=== PATIENT | female | born 1945 | race Caucasian/White ===

== ENCOUNTER → 2016-11-11 | Outpatient (CLI) | payer MEDICARE, OTHER | END | disposition home or self-care (01) | LOC: GMAB 10:16 | PROVIDERS: ATTEND Family Medicine | DX: E78.2 Mixed hyperlipidemia (principal); I10 Essential (primary) hypertension ==

== ENCOUNTER → 2017-12-01 | Outpatient (CLI) | payer MEDICARE ==
--- NOTE | 2017-12-01 14:09 | RAD ---
EXAM DESCRIPTION: Knee,Left Complete CLINICAL HISTORY: PAIN IN LEFT KNEE COMPARISON: 4 standing views of the left knee shows no evidence of acute fracture, focal bone destruction, or joint dislocation. Mild narrowing of the medial and lateral tibiofemoral compartments is seen without significant joint line osteophytes. Mild soft tissue swelling anterior to the superior patella is noted. Increased density in the suprapatellar bursa region is seen. IMPRESSION: Mild osteoarthritic changes of the left tibiofemoral compartment. Mild soft tissue swelling anterior to the patella could represent sequela of trauma or contusion. Small left joint effusion is seen. Electronically signed by: Pb Ventura MD 12/01/2017 2:07 PM CDT
--- NOTE | 2017-12-01 14:10 | RAD ---
EXAM DESCRIPTION: Pelvis CLINICAL HISTORY: 71 years Female, PAIN IN LEFT HIP COMPARISON: None. FINDINGS: Single AP view of the pelvis shows nondisplaced pelvic fracture. The hip and sacroiliac joint spaces are fairly well-maintained. Degenerative calcifications arise from the greater trochanters bilaterally. There are mild degenerative changes at a few levels in the lower lumbar spine. Small pelvic calcifications likely represent phleboliths. IMPRESSION: Mild degenerative changes in both hips, but no additional abnormality to explain left hip pain. Electronically signed by: Chace Blake MD 12/01/2017 2:09 PM CDT
== END ==
LOC: RAD 08:06
PROVIDERS: ATTEND Orthopaedic Surgery
DX: M17.12 Unilateral primary osteoarthritis, left knee (principal); M25.462 Effusion, left knee; M25.562 Pain in left knee; M25.552 Pain in left hip

== ENCOUNTER → 2018-02-13 | Outpatient (CLI) | payer MEDICARE, OTHER | LOC: GMAE 11:19 | PROVIDERS: ATTEND Family Medicine | DX: I10 Essential (primary) hypertension (principal) ==

== ENCOUNTER 2018-05-25 09:14 | Emergency (ER) | payer MEDICARE, OTHER ==
[2018-05-25] MEDS ORDERED: METOPROLOL TARTRATE INJ 5 MG/5 ML VIAL IV ONE (09:43)
--- NOTE | 2018-05-25 09:47 | ED.PDOC ---
History of Present Illness - General Chief Complaint: Cardiovascular Problem Stated Complaint: HTN, left arm pain Time Seen by Provider: 05/25/18 09:37 Source: patient Exam Limitations: no limitations - History of Present Illness Initial Comments: Pt found her BP to be over 200 systolic this am. She has had mild SOB and minimal L arm pain. Denies CAD Hx. Has had high BP for several days, and has been Rx'ed another BP med which has not been started yet Timing/Duration: 1 week Location: other Activities at Onset: none Prior Chest Pain/Cardiac Workup: other - Ablation performed for A.fib Improving Factors: nothing Worsening Factors: nothing Nitro Today/Relief: no nitro taken today Aspirin Treatment Today: no aspirin today Associated Symptoms: shortness of breath Allergies/Adverse Reactions: Allergies NO KNOWN ALLERGY Allergy (Verified 05/15/12 12:13) Home Medications: Ambulatory Orders Calcium Carbonate-Vitamin D [Calcium 600+D 600-200 mg-Unit] 1 tab PO BID 01/26/14 Estropipate [Ogen] 1.5 mg PO DAILY 01/26/14 Gabapentin [Neurontin] 300 mg PO BID 01/26/14 Lisinopril [Zestril] 20 mg PO BEDTIME 01/26/14 Medroxyprogesterone Acetate [Medroxyprogesterone Aceta] 2.5 mg PO DAILY 01/26/14 Meloxicam 15 mg PO DAILY 01/26/14 [place]-3 Fatty Acids [Fish Oil] 1 cap PO DAILY 01/26/14 Chlorthalidone 12.5 mg PO DAILY 05/25/18 Vitamin E [Natural Vitamin E] 1,000 unit PO DAILY 05/25/18 Review of Systems - Review of Systems Constitutional: States: no symptoms reported EENTM: States: no symptoms reported Respiratory: States: short of breath. Denies: cough, orthopnea Cardiology: Denies: chest pain, edema Gastrointestinal/Abdominal: Denies: abdominal pain, nausea Genitourinary: States: no symptoms reported Musculoskeletal: States: no symptoms reported Skin: States: no symptoms reported Neurological: States: no symptoms reported Endocrine: States: no symptoms reported Hematologic/Lymphatic: States: no symptoms reported Past Medical History (General) - Patient Medical History Hx Cardiac Disorders: Yes - Small SD, and ablation for Tachydysrhythmia Hx Congestive Heart Failure: No Hx Hypertension: Yes Family Medical History - Family History Mother Family History: No Known Physical Exam - Physical Exam General Appearance: Alert, Anxious Eyes, Ears, Nose, Throat Exam: PERRL/EOMI, pharynx normal Neck: non-tender, full range of motion, supple Respiratory: chest non-tender, lungs clear, normal breath sounds Cardiovascular/Chest: normal peripheral pulses, regular rate, rhythm, no edema Gastrointestinal/Abdominal: normal bowel sounds, non tender, soft Extremity: normal range of motion, non-tender, normal inspection, no pedal edema Neurologic: alert, normal mood/affect, oriented x 3 Skin Exam: normal color, warm/dry Progress - EKG/XRAY/CT EKG: Sinus, nonspecific ST T wave Chg Comments: Rate 69, [place] 132, QRS 80 Departure - Departure Clinical Impression: Hypertension Qualifiers: Hypertension type: essential hypertension Qualified Code(s): I10 - Essential (primary) hypertension Disposition: Discharge to Home or Self Care Condition: Fair Departure Forms: ED Discharge - Pt. Copy, Patient Portal Self Enrollment Instructions: DI for Chest Pain Referrals: BOBBY LINDER MD [Primary Care Provider] - 1-2 Weeks Home Medications: Ambulatory Orders Calcium Carbonate-Vitamin D [Calcium 600+D 600-200 mg-Unit] 1 tab PO BID 01/26/14 Estropipate [Ogen] 1.5 mg PO DAILY 01/26/14 Gabapentin [Neurontin] 300 mg PO BID 01/26/14 Lisinopril [Zestril] 20 mg PO BEDTIME 01/26/14 Medroxyprogesterone Acetate [Medroxyprogesterone Aceta] 2.5 mg PO DAILY 01/26/14 Meloxicam 15 mg PO DAILY 01/26/14 [place]-3 Fatty Acids [Fish Oil] 1 cap PO DAILY 01/26/14 Chlorthalidone 12.5 mg PO DAILY 05/25/18 Vitamin E [Natural Vitamin E] 1,000 unit PO DAILY 05/25/18
[2018-05-25 10:54] VITALS: BP 179/83; TEMP 97.6; O2SAT 95
== END 2018-05-25 10:56 | disposition home or self-care (01) ==
LOC: ER 09:14
DX: I10 Essential (primary) hypertension (principal); R06.02 Shortness of breath; M79.602 Pain in left arm; I25.2 Old myocardial infarction; Z79.899 Other long term (current) drug therapy

== ENCOUNTER → 2018-07-04 | Outpatient (CLI) | payer MEDICARE, OTHER ==
--- NOTE | 2018-07-04 08:58 | MRI ---
EXAM DESCRIPTION: MRI right hip CLINICAL HISTORY: Right hip pain. Inability to bear weight COMPARISON: None. TECHNIQUE: Multiplanar, multisequence MR images of the right hip FINDINGS: Degenerative tear anterior superior labrum. Intralabral signal with mild fraying of the articular surface. Tiny paralabral cyst along the anterior column axial image 14. No focal osteochondral lesion of the femoral head or acetabulum. Diffuse chondral thinning joint space narrowing. Physiologic joint fluid without synovitis or intra-articular body Chronic tendinosis and high-grade insertional tears of the gluteus minimus and anterior gluteus medius bilaterally. Markedly attenuated chronically torn tendons with large enthesophytes at the greater trochanter. Fluid partially undermines the chronically torn tendons with minimal fluid in the trochanteric bursa. Muscle volume loss and fatty infiltration] right greater than left The remaining tendon attachments to the femur are normal. No abnormality of the tendon attachments to the pelvis No pelvic soft tissue mass lesion, adenopathy or free fluid to suggest neoplasm. No mass lesion or focal inflammatory process seen in the small or large intestine included in the [id number] IMPRESSION: Chronic/remotely torn gluteus minimus and gluteus medius tendon attachments to the greater trochanter bilaterally. Large enthesophytes. Trochanteric bursal fluid bilaterally Degenerative labral tear anterior superior right hip. No acute bony abnormality or focal osteochondral lesion of the right hip Electronically signed by: Brannon Elkins MD 07/04/2018 8:56 AM CDT
== END ==
LOC: MRI 08:00
PROVIDERS: ATTEND Family Medicine
DX: S76.311A Strain of muscle, fascia and tendon of the posterior muscle group at thigh level, right thigh, initial encounter (principal); S73.192A Other sprain of left hip, initial encounter; M25.751 Osteophyte, right hip

== ENCOUNTER → 2018-08-09 | Outpatient (CLI) | payer MEDICARE, OTHER | LOC: LAB.O 09:34 | PROVIDERS: ATTEND Orthopaedic Surgery | DX: Z01.818 Encounter for other preprocedural examination (principal) ==

== ENCOUNTER 2018-09-06 05:44 | Inpatient (IN) | payer MEDICARE, OTHER ==
--- NOTE | 2018-08-31 10:16 | HP ---
CHIEF COMPLAINT: Right hip pain. HISTORY OF PRESENT ILLNESS: Ms. Iniguez is a 72-year-old female with a history of pain in the lateral aspect of the hip. It has been there now for a couple of months and has gotten progressively worse. Because of the pain and her failure of conservative measures, she has requested operative intervention. She has had an MRI which does show tearing of the abductor musculature. After discussing the risks, benefits and alternatives to that, she has given informed consent for abductor musculature repair. PAST SURGICAL HISTORY: 1. . 2. Cholecystectomy. MEDICATIONS: 1. Prednisone. 2. Lisinopril. 3. Clonidine. 4. Amlodipine. 5. Gabapentin. 6. Mobic. 7. Estropipate. 8. [place]. 9. Aspirin. 10. Medroxyprogesterone. ALLERGIES: NO KNOWN DRUG ALLERGIES. CODE STATUS: DNR. IMMUNIZATIONS: Up to date. SOCIAL HISTORY: The patient does not drink, smoke or use any illicit drugs. FAMILY HISTORY: None pertinent to today's complaint. REVIEW OF SYSTEMS: Negative except as indicated in the History of Present Illness. PHYSICAL EXAMINATION: VITAL SIGNS: Blood pressure 158/81. Pulse 72. Height 5'3". Weight 194 pounds. MENTAL STATUS: The patient is awake, alert, and is able to give a good history and participate in the physical. The patient is oriented to person, place and time. SKIN: Normal tone and turgor. HEENT: Normocephalic, atraumatic. Pupils equal, round and reactive. Mucosal membranes are moist. NECK: Normal range of motion. No thyromegaly, no lymphadenopathy. CHEST: Normal respiratory excursion. CARDIAC: Regular rate and rhythm. No murmurs, rubs or gallops. MUSCULOSKELETAL: The bilateral upper extremities show full active range of motion. She has intact sensation and they are warm and well perfused. She has no deformity and no significant crepitus with range of motion. Strength is 5/5 and equivalent to the contralateral side. The left lower extremity shows full range of motion in the hip, knee, ankle and digits. Sensation is intact and the extremity is warm and well perfused. There is no deformity. The right lower extremity shows full range of motion in the hip. She has full range of motion in the knee. She has severe pain to palpation of the lateral aspect of the hip with some weakness in abduction. Strength is 5/5. She has a slight antalgic gait. ASSESSMENT: 1. Abductor musculature rupture. PLAN: The plan at this point is for abductor musculature repair. She has been fitted for an abduction brace and will utilize that after surgery. We have discussed the risks, benefits, and alternatives to that and the patient has given informed consent. #[id number] [facility]
[2018-09-06] MEDS ORDERED: VANCOMYCIN HCL INJ 1,000 MG VIAL IVPB ONE ×2 (05:55→17:44)
[2018-09-06] MEDS ORDERED: TRANEXAMIC ACID 1,000 MG/10 ML VIAL ONE (05:55)
[2018-09-06] MEDS ORDERED: SODIUM CHL 0.9% 100ML MINI-BAG 100 ML IVPB ONE (05:55)
[2018-09-06] MEDS ORDERED: ceFAZolin SODIUM 1 GM VIAL ONE ×3 (05:55→17:06)
[2018-09-06] MEDS ORDERED: SODIUM CHLORIDE 0.9% 250ML 250 ML ONE ×2 (05:55→17:43)
[2018-09-06] MEDS ORDERED: LACTATED RINGERS 1,000 ML ONE (05:55)
[2018-09-06] MEDS ORDERED: SODIUM CHLORIDE 0.9% 100ML 0 ML IVPB ONE (05:56)
[2018-09-06] MEDS ORDERED: MORPHINE SULFATE *EPIDURAL* 0.5 MG/ML VIAL ONE (06:40)
[2018-09-06] MEDS ORDERED: ROCURONIUM BROMIDE 10 MG/ML VIAL ONE (06:40)
[2018-09-06] MEDS ORDERED: MIDAZOLAM INJ 2 MG/2 ML VIAL ONE (06:40)
[2018-09-06] MEDS ORDERED: fentaNYL CITRATE INJ 50 MCG/ML AMP ONE (06:40)
[2018-09-06] MEDS: VANCOMYCIN HCL INJ 1,000 MG VIAL IVPB ONE ×3 (07:56→09:02)
[2018-09-06] MEDS: ceFAZolin SODIUM 1 GM VIAL ONE ×3 (07:56→09:02)
[2018-09-06] MEDS: BUPIVACAINE LIPOSOME 13.3 MG/ML VIAL INJ ONE ×2 (08:06→09:02)
[2018-09-06] MEDS: BUPIVACAINE 0.5% 30 ML VIAL INJ ONE ×2 (08:06→09:02)
[2018-09-06] MEDS ORDERED: ELECTROLYTE-A 1,000 ML IVS ONE (08:29)
[2018-09-06] MEDS ORDERED: ACETAMINOPHEN 500 MG TAB PO PRN (09:22)
[2018-09-06] MEDS ORDERED: ONDANSETRON INJ 4 MG/2 ML VIAL IV PRN (09:22)
[2018-09-06] MEDS ORDERED: TEMAZEPAM 15 MG CAP PO PRN (09:22)
[2018-09-06] MEDS ORDERED: MORPHINE SULFATE INJ 10 MG/ML VIAL IM PRN (09:22)
[2018-09-06] MEDS ORDERED: PROMETHAZINE HCL INJ 12.5 MG in SODIUM CHLORIDE 0.9% 50ML 50 ML IVPB PRN (09:22)
[2018-09-06] MEDS ORDERED: DEX 5% W/NACL 0.45% 1000ML 1,000 ML IVS PRN (09:22)
[2018-09-06] MEDS ORDERED: ALUMINUM & MAGNESIUM HYDROXIDE 30 ML UD PO PRN (09:22)
[2018-09-06] MEDS ORDERED: BENZOCAINE-MENTH LOZ (CEPACOL) 1 EA LOZ MT PRN (09:22)
[2018-09-06] MEDS ORDERED: NALOXONE HCL INJ 0.4 MG/ML VIAL IV PRN (09:22)
[2018-09-06] MEDS ORDERED: ZOLPIDEM TARTRATE 5 MG TAB PO PRN (09:22)
[2018-09-06] MEDS ORDERED: ACETAMINOPHEN 325 MG TAB PO PRN (09:22)
[2018-09-06] MEDS ORDERED: MORPHINE SULFATE INJ 10 MG/ML VIAL IV PRN (09:22)
[2018-09-06] MEDS ORDERED: CYCLOBENZAPRINE HCL 10 MG TAB PO PRN (09:22)
[2018-09-06] MEDS ORDERED: SODIUM CHLORIDE 0.9% (FLUSH) 10 ML SYG IV PRN (09:22)
[2018-09-06] MEDS ORDERED: MAGNESIUM HYDROXIDE 30 ML UD PO PRN (09:22)
[2018-09-06] MEDS ORDERED: BISACODYL SUPPOSITORY 10 MG PR PRN (09:22)
[2018-09-06] MEDS ORDERED: traMADol HCL 50 MG TAB PO PRN (09:22)
[2018-09-06] MEDS ORDERED: PROMETHAZINE HCL INJ 25 MG in SODIUM CHLORIDE 0.9% 50ML 50 ML IVPB PRN (09:22)
[2018-09-06] MEDS ORDERED: IV SET AND CAP CHANGE INJ INJ SCH (09:30)
[2018-09-06] MEDS ORDERED: MORPHINE PCA 1 MG/ML 100 ML BAG IVPB SCH (09:30)
[2018-09-06] MEDS ORDERED: SUGAMMADEX SODIUM 200 MG/2 ML VIAL IV ONE (09:33)
[2018-09-06] MEDS ORDERED: LIDOCAINE 1% 10 ML VIAL INJ ONE (10:00)
[2018-09-06] MEDS ORDERED: METOCLOPRAMIDE HCL INJ 10 MG/2 ML VIAL IV ONE (10:00)
[2018-09-06] MEDS ORDERED: ePHEDrine SULF 50 MG/ML IV ONE (10:00)
[2018-09-06] MEDS ORDERED: raNITIdine HCL INJ 25 MG/ML VIAL IV ONE (10:00)
[2018-09-06] MEDS ORDERED: DEXAMETHASONE INJ 10 MG/ML VIAL IV ONE (10:00)
[2018-09-06] MEDS ORDERED: PROPOFOL 200 MG/20 ML VIAL IV ONE (10:00)
[2018-09-06] MEDS ORDERED: SODIUM CHLORIDE 0.9% 50ML 50 ML ONE ×2 (17:06→17:21)
[2018-09-06] MEDS ORDERED: PROMETHAZINE HCL INJ 25 MG/ML VIAL ONE (17:21)
[2018-09-06] MEDS: ceFAZolin SODIUM 2 GRAMS PREMI 2 GM in PREMIX BAG 1 BAG IVPB SCH (17:25)
[2018-09-06] MEDS: CELECOXIB 100 MG CAP PO SCH (17:51)
[2018-09-06] MEDS: VANCOMYCIN HCL INJ 1,000 MG in SODIUM CHLORIDE 0.9% 250ML 250 ML IVPB SCH (18:30)
[2018-09-06] MEDS ORDERED: LISINOPRIL 40 MG PO SCH (21:00)
[2018-09-06] MEDS ORDERED: NON-FORMULARY MEDICATION 1 EA MIS (Gabapentin [Gabapentin] 600 MG) PO SCH (21:00)
--- NOTE | 2018-09-06 21:22 | CONS ---
DATE OF CONSULTATION: 09/06/18 SUPERVISING PHYSICIAN: Brannon Valle M.D. HISTORY OF PRESENT ILLNESS: This is a 72 year-old female patient who was admitted today for a right hip abductor repair. She requested operative intervention from Dr. Clifford Nieto, orthopedic surgeon. She had no problems intraoperatively and I am seeing the patient postoperatively on the Medical/Surgical floor. PAST MEDICAL HISTORY: 1. Hypertension. 2. SVT on Amlodipine and Lisinopril, diagnosed in 2002. 3. Myocardial infarction. 4. Osteoarthritis. 5. Depression. 6. Sciatica. PAST SURGICAL HISTORY: 1. Cholecystectomy. 2. section times 2. OUTPATIENT MEDICATIONS: 1. Aspirin. 2. Calcium carbonate/Vitamin D. 3. Clonidine. 4. Meloxicam. 5. [place]-3 fatty acid. 6. Vitamin E. 7. Amlodipine. 8. Estropipate. 9. Gabapentin. 10. Lisinopril. 11. Medroxyprogesterone. ALLERGIES: NO KNOWN DRUG ALLERGIES. SOCIAL HISTORY: She is . She lives in [place]. She has never smoked. She drinks alcohol very infrequently. She denies any tobacco abuse. REVIEW OF SYSTEMS: Negative except as per History of Present Illness. PHYSICAL EXAMINATION: VITAL SIGNS: Temperature 96.8, heart rate 70, blood pressure 156/72, respiratory rate 16, O2 sat 94% on 2 liters nasal cannula. GENERAL: This is a 72 year-old female patient who is lying in her hospital bed. She is in no acute distress. HEENT: Normocephalic and atraumatic. Pupils are equal and reactive. Oropharynx is clear. NECK: Supple without mass. RESPIRATORY: Essentially clear to auscultation bilaterally. HEART: Regular rate and rhythm. GASTROINTESTINAL: Abdomen is soft, nondistended, non-tender. Bowel sounds are positive. EXTREMITIES: Bilateral pedal pulses are palpable at +2. There is a dressing to her right lateral hip that is dry and intact. NEUROLOGIC: She is somewhat sleepy and lethargic but she answers questions appropriately. She is oriented times three. SKIN: Warm and dry. LABORATORY: UDS was negative. All other labs and films have been reviewed via the EMR. IMPRESSION: 1. Right hip abductor repair performed by Dr. Clifford Nieto, orthopedic surgeon. Postoperative day #0. 2. Hypertension. 3. Remote history of supraventricular tachycardia in 2002. 4. Remote history of myocardial infarction in 2002. 5. Osteoarthritis. 6. Depression. PLAN: We will continue present supportive care. I have restarted her home medications except for her NSAIDs. I will monitor her progress over the next several days. Orthopedic issues will be per Dr. Clifford Nieto, orthopedic surgeon. She will begin her physical therapy for strengthening and conditioning tomorrow. Will monitor closely and follow as needed. #[id number] [facility]
[2018-09-06] MEDS: DOCUSATE CALCIUM 240 MG CAP PO SCH (21:34)
[2018-09-06] MEDS: LISINOPRIL 10 MG TAB PO SCH (21:34)
[2018-09-06] MEDS: GABAPENTIN 300 MG CAP PO SCH (21:34)
[2018-09-06] MEDS: ENOXAPARIN SODIUM 30 MG/0.3 ML SYG SUBCU SCH (22:34)
[2018-09-07] MEDS ORDERED: ceFAZolin SODIUM 1 GM VIAL ONE ×2 (00:33→07:35)
[2018-09-07] MEDS ORDERED: SODIUM CHL 0.9% 50ML MIN-BAG+ 50 ML IVPB ONE (00:34)
[2018-09-07] MEDS: ceFAZolin SODIUM 2 GRAMS PREMI 2 GM in PREMIX BAG 1 BAG IVPB SCH ×2 (00:37→07:45)
[2018-09-07] MEDS ORDERED: SODIUM CHLORIDE 0.9% 500ML 500 ML IVS ONE (05:44)
[2018-09-07] MEDS ORDERED: VANCOMYCIN HCL INJ 1,000 MG VIAL IVPB ONE (05:57)
[2018-09-07] MEDS ORDERED: SODIUM CHLORIDE 0.9% 250ML 250 ML ONE (05:57)
[2018-09-07] MEDS: VANCOMYCIN HCL INJ 1,000 MG in SODIUM CHLORIDE 0.9% 250ML 250 ML IVPB SCH (06:11)
[2018-09-07] MEDS ORDERED: SODIUM CHLORIDE 0.9% 50ML 50 ML ONE (07:36)
[2018-09-07] MEDS: CELECOXIB 100 MG CAP PO SCH ×2 (07:45→16:52)
[2018-09-07] MEDS: amLODIPine BESYLATE 5 MG TAB PO SCH (08:38)
[2018-09-07] MEDS: medroxyPROGESTERone ACETATE 5 MG TAB PO SCH (08:38)
[2018-09-07] MEDS: MAGNESIUM OXIDE 400 MG TAB PO SCH (08:38)
[2018-09-07] MEDS: GABAPENTIN 300 MG CAP PO SCH ×2 (08:39→20:40)
[2018-09-07] MEDS ORDERED: ESTROPIPATE 1.5 MG PO SCH (09:00)
[2018-09-07] MEDS ORDERED: MEDROXYPROGESTERONE ACETATE PO SCH (09:00)
[2018-09-07] MEDS: ESTROPIPATE 1.5 MG PO SCH (09:22)
[2018-09-07] MEDS: ENOXAPARIN SODIUM 30 MG/0.3 ML SYG SUBCU SCH ×2 (11:06→22:36)
[2018-09-07] MEDS ORDERED: ALPRAZolam 0.25 MG TAB PO PRN (11:52)
[2018-09-07] MEDS ORDERED: ONDANSETRON ODT 8 MG TAB SL PRN (11:54)
[2018-09-07] MEDS: HYDROcodone 5MG/APAP 325MG 1 EA TAB PO PRN ×2 (13:35→20:00)
--- NOTE | 2018-09-07 15:36 | PN ---
DATE: 09/06/2018 SUBJECTIVE: Ms. Iniguez is doing well and is resting. She has good pain control right now. OBJECTIVE: She is afebrile. Vital signs are stable. Dressing is clean, dry and intact. ASSESSMENT: 1. Status post repair of abductor musculature rupture. PLAN: At this point, she can start with physical therapy and get out of bed on postoperative day #1. #[id number] [facility]
--- NOTE | 2018-09-07 15:39 | PN ---
DATE: 09/07/09 SUBJECTIVE: Ms. Iniguez had a little bit of nausea when she woke up this morning dizziness when she tried to get out of bed. Today, her right at this time she is currently improving. She is up to a chair. PLAN: She can continue on with physical therapy and will keep her likely for one more day. #[id number] [facility]
--- NOTE | 2018-09-07 16:03 | PN ---
SUPERVISING PHYSICIAN: Brannon Valle MD DATE: 09/07/18 SUBJECTIVE: The patient is sitting up in the chair in her room. Her is at the bedside. She is talking to Dr. Nieto. She had some dizziness as well as weakness this morning during her physical therapy. She discussed with Dr. Nieto that she may need to stay another night and he agreed with her. Nursing also said that. She had four urinary output and she received some fluids last night, that has improved. Plan for discharge tomorrow or the next day after physical therapy releases her. OBJECTIVE: VITAL SIGNS: Temperature 98, heart rate 70, blood pressure 131/77, respiratory rate 16, 02 saturation 92% on 2 liters nasal cannula. RESPIRATORY: Essentially clear to auscultation bilaterally. CARDIAC: Regular rate and rhythm. ABDOMEN: Soft, nondistended, non-tender. Bowel sounds are positive. EXTREMITIES: Bilateral pedal pulses are palpable at +2 with dressing to her right lateral hip that is dry and intact. NEUROLOGY: She is awake, alert, and oriented time three. LABORATORY: Hemoglobin 11.2, hematocrit 34. All other labs and films have been reviewed via the EMR. ASSESSMENT: 1. Right hip abductor repair performed by Dr. Clifford Nieto, orthopedic surgeon. Postoperative day #1. 2. Hypertension. 3. Remote history of supraventricular tachycardia in 2002. 4. Remote history of myocardial infarction in 2002. 5. Osteoarthritis. 6. Depression. PLAN: We will continue present supportive care. Her IV was infiltrated and was discontinued so we will transition her to p.o. medications including sublingual Zofran as she has had some nausea. She will be on hydrocodone for pain. Orthopedic issues will be per Dr. Nieto, orthopedic surgeon. She will resume her physical therapy for strengthening and conditioning tomorrow. I have encouraged good pulmonary hygiene and we will monitor closely and follow as needed. [facility][id number] [facility]
[2018-09-07] MEDS: LISINOPRIL 10 MG TAB PO SCH (20:40)
[2018-09-07] MEDS: DOCUSATE CALCIUM 240 MG CAP PO SCH (20:40)
[2018-09-08] MEDS: CELECOXIB 100 MG CAP PO SCH (07:53)
[2018-09-08] MEDS ORDERED: SODIUM CHLORIDE 0.9% (FLUSH) 10 ML SYG IV SCH (09:00)
[2018-09-08] MEDS: ESTROPIPATE 1.5 MG PO SCH (09:21)
[2018-09-08] MEDS: HYDROcodone 5MG/APAP 325MG 1 EA TAB PO PRN ×2 (10:17→14:00)
[2018-09-08] MEDS: medroxyPROGESTERone ACETATE 5 MG TAB PO SCH (10:18)
[2018-09-08] MEDS: amLODIPine BESYLATE 5 MG TAB PO SCH (10:18)
[2018-09-08] MEDS: GABAPENTIN 300 MG CAP PO SCH (10:18)
[2018-09-08] MEDS: MAGNESIUM OXIDE 400 MG TAB PO SCH (10:20)
[2018-09-08] MEDS: ENOXAPARIN SODIUM 30 MG/0.3 ML SYG SUBCU SCH (11:11)
[2018-09-08 13:56] VITALS: BP 155/73; TEMP 97.6; O2SAT 98
--- NOTE | 2018-09-08 14:48 | PN ---
DATE: 09/08/18 SUPERVISING PHYSICIAN: Brannon Valle MD SUBJECTIVE: The patient is lying in bed, her family is at the beside. She states she just feels weak and tired and her family thinks she is somewhat anxious. She also complains of nausea but no vomiting. She denies shortness of breath or chest pain. OBJECTIVE: VITAL SIGNS: Temperature 98, heart rate 76, blood pressure 155/77, respiratory rate 16, 02 saturation 91% on room air. RESPIRATORY: Essentially clear to auscultation bilaterally. She is somewhat diminished at the bases. CARDIAC: Regular rate and rhythm. ABDOMEN: Soft, nondistended, non-tender. Bowel sounds are positive. NEUROLOGY: She is awake, alert, and oriented time three. LABORATORY: Hemoglobin and hematocrit have improved to 12 and 36.2 respectively. All other labs and films have been reviewed via the EMR. ASSESSMENT: 1. Right hip abductor repair performed by Dr. Clifford Nieto, orthopedic surgeon. Postoperative day #2 2. Hypertension. 3. Remote history of supraventricular tachycardia in 2002. 4. Remote history of myocardial infarction in 2002. 5. Osteoarthritis. 6. Depression and anxiety. PLAN: We will continue present supportive care. She was unable to do much of her physical therapy yesterday and she will go through step training this afternoon. I think most of her issues stem fro her anxiety and I have made sure the patient will get some Xanax to help with the anxiety. She has also decided to have [facility] at discharge with their physical therapy department. She will continue this afternoon with her physical therapy for strengthening and training as well as her step therapy. Hopefully, she can be discharged tomorrow. I did order the hemoglobin and hematocrit today and it is stable but I have also done some routine labs for in the morning and hopefully she can be discharged in the morning with close followup with Dr. Nieto and [facility]. #[id number] [facility]
--- NOTE | 2018-09-09 11:05 | DS ---
SUPERVISING PHYSICIAN: Brannon Valle MD DISCHARGE DIAGNOSES: 1. Right hip abductor repair performed by Dr. Clifford Nieto, orthopedic surgeon. Postoperative day #2 2. Hypertension. 3. Remote history of supraventricular tachycardia in 2002. 4. Remote history of myocardial infarction in 2002. 5. Osteoarthritis. 6. Depression and anxiety. HISTORY OF PRESENT ILLNESS: This is a 72 year-old female patient who was admitted for a right hip abductor repair. She requested operative intervention per Dr. Clifford Nieto, orthopedic surgeon. There were no problems intraoperatively. She was admitted to the medical/surgical floor postoperatively and I saw the patient in medical consultation. HOSPITAL COURSE: The patient progressed slowly initially and had some difficulty with some nausea and vomiting as well as some lethargy. On the first day postoperative she had a difficult time working with physical therapy and today on the date of discharge, early this morning she continued to have some weakness as well as some mild nausea. There was no emesis. Her vital signs remained stable as well as her lab. Initially she was going to be held overnight for further observation but this afternoon after completing her chair exercises, she felt much better and felt that she could be discharged home with help from [facility] with physical therapy. She will be discharged home today in stable condition with home health and physical therapy. LABORATORY: First day postoperatively, her hemoglobin and hematocrit were 11.2 and 34 respectively. Today, her hemoglobin was 12 and her hematocrit was 36.2. On admission, her urine drug screen was negative. DISCHARGE PLAN: The patient is being discharged home in stable condition. She will have [facility] and physical therapy. Since this is an abductor repair, she will not need anticoagulant therapy other then an 81 mg baby aspirin to be taken daily which she has been on previously. She is to resume her previous diet as well as her physical activity should be per physical therapy. Her followup appointment with Dr. Nieto is within the next 2 weeks. Her home medications are to be restarted with the addition of cyclobenzaprine and her pain medication. She is to return to the hospital or call Dr. Clifford Nieto's office for any problems or complications. DISCHARGE MEDICATIONS: 1. Lisinopril. 2. Medroxyprogesterone. 3. Gabapentin. 4. Ogen. 5. Calcium/Vitamin D. 6. Vitamin E. 7. 81 mg aspirin. 8. Amlodipine. 9. Meloxicam. 10 [place]-3 fatty acid. 11. Clonidine. 12. Cyclobenzaprine. 13. Hydrocodone. [facility][id number] [facility]
[2018-09-09] MEDS ORDERED: MAGNESIUM HYDROXIDE 30 ML UD PO ONE (21:00)
[2018-09-09] MEDS ORDERED: BISACODYL SUPPOSITORY 10 MG PR ONE (21:00)
--- NOTE | 2018-09-11 08:47 | OP ---
DATE OF PROCEDURE: 09/06/18 PREOPERATIVE DIAGNOSIS: 1. Right hip abductor musculature rupture. POSTOPERATIVE DIAGNOSIS: 1. Full thickness ruptured gluteus medius. 2. Partial thickness rupture of the gluteus minimus. PROCEDURE PERFORMED. 1. Repair of abductor musculature. SURGEON: Clifford Nieto MD. ALUMINUM HYDROXIDE PROCESS OPERATOR: Tomy Carney CST, SA-C. ANESTHESIA: General anesthesia. COMPLICATIONS: None. FINDINGS: Full thickness tear of the abductor musculature. INDICATION FOR PROCEDURE: Ms. Iniguez has a history of severe pain in the hip. She has had conservative measures, however, has failed to gain relief. Because of her ongoing pain and failure of conservative measures, she requested operative intervention. After discussing the risks, benefits and alternatives to that, she has given informed consent for that. DESCRIPTION OF PROCEDURE: The patient was brought to the Operating Room and placed in superinfection. A good was induced and she was changed into the left lateral decubitus position. The leg and hemipelvis were sterilely prepped and draped. An incision was made directly overlying the greater trochanter. Dissection was carried down and the iliotibial band was split and the abductor musculature was identified, but it was noted to be adherent to the iliotibial band. Once an anatomic plane had been developed, the tendon of the gluteus medius and partially torn gluteus minimus were debrided. A bony debridement was performed to a bed of cancellous bleeding bone. Using a combination of both suture anchors and repair through drill holes, the abductor musculature was reapproximated to an anatomic position. Multiple absorbable and non-absorbable sutures were also used to strengthen the repair. Following that, the hip was taken through a range of motion and there was no gross motion at the repair site and did not appear to be under undue tension. The wound was very thoroughly irrigated and the iliotibial band was reapproximated. Following that, the skin was closed with a combination of running and subcuticular stitches. Sterile dressings were placed. The patient was changed into the supine position. She was awoken from anesthesia and taken to Recovery. POSTOPERATIVE PLAN: She is going to be limited to only 90 degrees of forward flexion, 0 abduction and external rotation. She will be full weightbearing. #[id number] [facility]
== END 2018-09-08 16:20 | disposition home health service (06) | DRG 502 ==
LOC: AMB 05:44 → MS 10:45
PROVIDERS: ADMIT Orthopaedic Surgery; ATTEND Nurse Practitioner Acute Care
PROC: 0KQN0ZZ Repair Right Hip Muscle, Open Approach (ICD-10-PCS; principal; 2018-09-06 07:05)
DX: M62.18 Other rupture of muscle (nontraumatic), other site (principal); R11.0 Nausea; I10 Essential (primary) hypertension; M19.90 Unspecified osteoarthritis, unspecified site; F32.9 Major depressive disorder, single episode, unspecified; F41.9 Anxiety disorder, unspecified; I25.2 Old myocardial infarction; Z66 Do not resuscitate; Z90.49 Acquired absence of other specified parts of digestive tract; Z79.82 Long term (current) use of aspirin; Z79.1 Long term (current) use of non-steroidal anti-inflammatories (NSAID); Z79.899 Other long term (current) drug therapy; Z79.52 Long term (current) use of systemic steroids; Z79.891 Long term (current) use of opiate analgesic

== ENCOUNTER → 2019-02-19 | Outpatient (CLI) | payer MEDICARE, OTHER ==
--- NOTE | 2019-02-19 09:06 | RAD ---
EXAM DESCRIPTION: Knee,Left Complete CLINICAL HISTORY: PAIN IN LEFT KNEE COMPARISON: None. TECHNIQUE: 4 views left. FINDINGS: Marked loss of lateral joint space is observed. Mild medial femoral osteophyte formation is noted. A joint effusion is seen. Patellofemoral joint degenerative changes are noted. IMPRESSION: Tricompartmental joint arthritis is observed most pronounced in the lateral joint compartment. A small joint effusion is evident. Electronically signed by: Gilmar Velez MD 02/19/2019 9:03 AM [facility]
--- NOTE | 2019-02-19 09:06 | RAD ---
EXAM DESCRIPTION: Pelvis CLINICAL HISTORY: HIP PAIN LEFT COMPARISON: November TECHNIQUE: AP pelvis FINDINGS: Phlebolith type calcifications are observed in the pelvis. No fracturing is detected. Some degenerative calcification is observed immediately above the greater trochanter.Mild deformity of the left inferior pubic ramus is observed and may be the result of remote trauma. There is been no significant interval change from the remote exam. IMPRESSION: No acute injury is seen. No significant interval changes noted. Electronically signed by: Gilmar Velez MD 02/19/2019 9:02 AM [facility]
== END ==
LOC: LAB.O 08:21
PROVIDERS: ATTEND Orthopaedic Surgery
DX: M17.12 Unilateral primary osteoarthritis, left knee (principal); M25.462 Effusion, left knee; M25.552 Pain in left hip

== ENCOUNTER → 2019-04-17 | Outpatient (CLI) | payer MEDICARE, OTHER | LOC: GMAE 10:50 | PROVIDERS: ATTEND Family Medicine | DX: I10 Essential (primary) hypertension (principal); E78.2 Mixed hyperlipidemia ==

== ENCOUNTER → 2020-04-17 | Outpatient (CLI) | payer MEDICARE, OTHER | LOC: GMAE 13:59 | PROVIDERS: ATTEND Family Medicine | DX: I10 Essential (primary) hypertension (principal) ==